=== PATIENT | female | born 1960 | race Caucasian/White ===

== ENCOUNTER → 2020-03-14 | Outpatient (CLI) | payer MEDICARE, OTHER | LOC: KOH-I 15:07 | DX: M51.17 Intervertebral disc disorders with radiculopathy, lumbosacral region (principal); M43.16 Spondylolisthesis, lumbar region | CPT/HCPCS: 72148 ==

== ENCOUNTER → 2020-08-13 | Outpatient (CLI) | payer MEDICARE, OTHER | LOC: RAD 16:59 | DX: M25.562 Pain in left knee (principal); M25.462 Effusion, left knee | CPT/HCPCS: 73564 ==

== ENCOUNTER → 2020-08-26 | Outpatient (CLI) | payer MEDICARE, OTHER | LOC: CT 07-04 10:30 → KOH-I 07-04 10:30 → CT 07-04 11:00 → KOH-I 13:01 | DX: M54.5 Low back pain (principal); M51.36 Other intervertebral disc degeneration, lumbar region | CPT/HCPCS: 72131 ==

== ENCOUNTER → 2020-10-06 | Outpatient (CLI) | payer MEDICARE | LOC: EXRD 08:42 | DX: K76.89 Other specified diseases of liver (principal); M54.17 Radiculopathy, lumbosacral region; M32.9 Systemic lupus erythematosus, unspecified; E55.9 Vitamin D deficiency, unspecified; K76.0 Fatty (change of) liver, not elsewhere classified | CPT/HCPCS: 76705 ==

== ENCOUNTER → 2021-02-19 | Outpatient (CLI) | payer MEDICARE | LOC: RAD 10:11 | DX: J20.9 Acute bronchitis, unspecified (principal) | CPT/HCPCS: 71046 ==

== ENCOUNTER → 2021-04-10 | Outpatient (CLI) | payer MEDICARE | LOC: CT 11:44 | DX: R10.9 Unspecified abdominal pain (principal); K44.9 Diaphragmatic hernia without obstruction or gangrene; K22.9 Disease of esophagus, unspecified | CPT/HCPCS: 36415; 82565; 84520; Q9967 ==

== ENCOUNTER → 2021-04-16 | Outpatient (CLI) | payer MEDICARE | LOC: RAD 09:51 | DX: M79.605 Pain in left leg (principal); M54.17 Radiculopathy, lumbosacral region; J45.909 Unspecified asthma, uncomplicated; E55.9 Vitamin D deficiency, unspecified; M32.9 Systemic lupus erythematosus, unspecified; K76.0 Fatty (change of) liver, not elsewhere classified | CPT/HCPCS: 73590 ==

== ENCOUNTER 2021-08-24 16:39 | Emergency (ER) | payer OTHER ==
[2021-08-24 17:20] LABS: HEMOGLOBIN 13.7 gm/dl (12.3-15.3); RED BLOOD COUNT 4.47 M/UL (4.00-5.10); WHITE BLOOD COUNT 6.6 K/UL (4.5-11.0)
[2021-08-24] MEDS ORDERED: PHENERGAN 25 MG25 M1 PO (20:19)
[2021-08-24] MEDS ORDERED: TORADOL 10 MG T10 MG PO (20:19)
[2021-08-24] MEDS ORDERED: FLOMAX 0.4 MG0.4 MG PO (20:19)
== END 2021-08-24 20:47 | disposition home or self-care (01) ==
LOC: ER1 16:39
PROVIDERS: Physician Assistant Medical
DX: N13.2 Hydronephrosis with renal and ureteral calculous obstruction (principal); Z88.5 Allergy status to narcotic agent; Z88.8 Allergy status to other drugs, medicaments and biological substances; F11.20 Opioid dependence, uncomplicated; R03.0 Elevated blood-pressure reading, without diagnosis of hypertension; Z87.442 Personal history of urinary calculi; G89.29 Other chronic pain
CPT/HCPCS: 80053; 81001; 85025; 96374; 96375; 99284; J1885; J2405

== ENCOUNTER 2021-09-04 14:06 | Emergency (ER) | payer OTHER ==
[~2021-09-04 14:06] MED LIST: FLOMAX 0.4 MG0.4 MG PO; PHENERGAN 25 MG25 M1 PO; TORADOL 10 MG T10 MG PO
== END 2021-09-04 16:20 | disposition home or self-care (01) ==
LOC: ER1 14:06
DX: S09.90XA Unspecified injury of head, initial encounter (principal); S13.9XXA Sprain of joints and ligaments of unspecified parts of neck, initial encounter; M06.9 Rheumatoid arthritis, unspecified; Z90.89 Acquired absence of other organs; Z90.49 Acquired absence of other specified parts of digestive tract; Z90.710 Acquired absence of both cervix and uterus; W01.10XA Fall on same level from slipping, tripping and stumbling with subsequent striking against unspecified object, initial encounter
CPT/HCPCS: 70450; 72125; 99284

== ENCOUNTER → 2021-11-12 | Outpatient (CLI) | payer MEDICARE | LOC: MAMO 08:35 | DX: Z12.31 Encounter for screening mammogram for malignant neoplasm of breast (principal); M32.9 Systemic lupus erythematosus, unspecified; E55.9 Vitamin D deficiency, unspecified; J45.909 Unspecified asthma, uncomplicated; K76.0 Fatty (change of) liver, not elsewhere classified; Z76.89 Persons encountering health services in other specified circumstances; M54.17 Radiculopathy, lumbosacral region; Z78.0 Asymptomatic menopausal state; Z90.710 Acquired absence of both cervix and uterus; M85.852 Other specified disorders of bone density and structure, left thigh | CPT/HCPCS: 77063; 77067; 77080 ==